=== PATIENT | male | born 1990 | race Hispanic/Latino ===

== ENCOUNTER 2018-11-19 02:40 | Emergency (ER) | payer OTHER ==
[2018-11-19 02:46] VITALS: O2SAT 97
--- NOTE | 2018-11-19 02:59 | ED PDOC ---
HPI: Wound Care - HPI Time Seen by Provider: 11/19/18 02:52 Chief Complaint (Nursing): Upper Extremity Problem/Injury Chief Complaint (Provider): right hand 2nd digit laceration History Per: Patient History Of Present Illness: 28 y/o male presents for evaluation of laceration to right hand 2nd digit sustained prior to arrival. 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 Denies numbness/weakness right upper extremity, limitation of movement. Tetanus up to date. Past Medical History Reviewed: Historical Data, Nursing Documentation, Vital Signs Vital Signs: Last Vital Signs Temp 98.4 F 11/19/18 02:42 Pulse 125 H 11/19/18 02:42 Resp 17 11/19/18 02:42 BP 142/90 11/19/18 02:42 Pulse Ox 97 11/19/18 02:42 - Medical History PMH: No Chronic Diseases - Surgical History Surgical History: No Surg Hx - Family History Family History: States: Unknown Family Hx - Living Arrangements Living Arrangements: With Family - Home Medications Home Medications: Ambulatory Orders Medication Instructions Recorded Cephalexin [cephalexin] 500 mg PO BID #20 cap 11/30/15 - Allergies Allergies/Adverse Reactions: Allergies Allergy/AdvReac Type Severity Reaction Status Date / Time No Known Allergies Allergy Verified 11/19/18 02:43 Review of Systems ROS Statement: Except As Marked, All Systems Reviewed And Found Negative Musculoskeletal: Positive for: Hand Pain (right hand 2nd digit laceration) Physical Exam - Reviewed Nursing Documentation Reviewed: Yes Vital Signs Reviewed: Yes - Physical Exam Appears: Positive for: Well, Non-toxic, No Acute Distress Extremity: Positive for: Normal ROM, Capillary Refill (<3 sec b/l UE), Other (1.5cm laceration distal palmar right hand 2nd digit. Wound edges together. Small skin-flap laceration distal palmar left hand 2nd digit. No bleeding. Distal NV/motor intact bilateral upper extremities) Neurologic/Psych: Positive for: Alert, Oriented (x3) - ECG O2 Sat by Pulse Oximetry: 97 Procedure: Wound Repair - Time Performed Time Performed: 03:10 - Time Out Time Out: Side verified, Site verified, Patient ID confirmed - Consent Obtained Consent obtained: Verbal - Performed by Performed by: Mid-level Provider - Indications Indication(s):: Laceration - Location Finger:: Right, Left, Index Shape:: Curvilinear Dimensions Length cm: 1.5cm (right), 0.5cm (left) Depth:: Epidermis - Debris Debris:: None - Irrigated Irrigated with ml of normal saline: 150mL - Wound repair method Toribio:: Tissue glue, Steri-strips (finger splint applied to right hand 2nd digit) - Muscle repiar layer closed with Muscle repair layer closed with:: Tetanus up to date - Patient tolerated procedure Patient Tolerated Procedure:: Well Medical Decision Making Medical Decision Making: Patient educated on wound care, advised follow up PMD within 2-3 days Return precautions given Disposition - Clinical Impression Clinical Impression: Finger laceration - Patient ED Disposition Is Patient to be Admitted: No Counseled Patient/Family Regarding: Diagnosis, Need For Followup - Disposition Disposition: Routine/Home Disposition Time: 03:20 Condition: IMPROVED Instructions: Laceration Repair With Glue (DC) Forms: [employer] ([place])
[2018-11-19 03:41] VITALS: BP 127/72; PULSE 91; RESP 16; TEMP 98.1
== END 2018-11-19 03:41 | disposition home or self-care (01) ==
LOC: H.ER 02:40
DX: S61.210A Laceration without foreign body of right index finger without damage to nail, initial encounter (principal); W26.8XXA Contact with other sharp object(s), not elsewhere classified, initial encounter; Y93.9 Activity, unspecified